=== PATIENT | female | born 1990 | race Caucasian/White ===

== ENCOUNTER 2025-01-19 10:02 | Emergency (ER) | payer OTHER, SELFPAY ==
[2025-01-19 10:14] VITALS: BP 123/86; PULSE 86; RESP 14; TEMP 36.1; O2SAT 96; BMI 32.4
--- NOTE | 2025-01-19 12:08 | ED.DENTAL ---
HPI - Dental/Oral <Olivia Storey PA-C - Last Filed: 01/19/25 19:16> General Chief complaint: Dental/Oral Stated complaint: Jaw pain Time Seen by Provider: 01/19/25 11:54 Mode of arrival: Ambulatory History of Present Illness HPI Narrative: Ms. Celis is a pleasant 34-year-old female, currently 17 weeks , following with Dale, who presents to the emergency department for right jaw pain since yesterday. Patient states her right lower jaw has been hurting and feels slightly swollen with pain radiating to the right ear. States that it hurts in the right TMJ to open her mouth. Reports that her right cheek feels slightly swollen. States that she does have a history of parotitis on the left side. She is fully vaccinated. Denies any focal tooth pain or maxillary sinus tenderness. Denies fevers, chills, difficulty swallowing, abdominal pain, vaginal bleeding, any other symptoms. She took Tylenol this morning which only helped with the pain slightly. Pain prevented her from sleeping last night. Related Data Previous Rx's Medication Instructions Recorded amoxicillin 875 mg tablet 875 mg PO BID 7 days #14 tabs 01/19/25 hydrocodone 5 mg-acetaminophen 325 1 tab PO Q6H PRN pain #1 tab 01/19/25 mg tablet Allergies Allergy/AdvReac Type Severity Reaction Status Date / Time ketorolac [From Toradol] Allergy Verified 01/19/25 10:14 meperidine [From Demerol] Allergy Verified 01/19/25 10:14 ciprofloxacin [From Cipro] AdvReac Verified 01/19/25 10:14 metoclopramide [From Reglan] AdvReac Verified 01/19/25 10:14 Review of Systems <Olivia Storey PA-C - Last Filed: 01/19/25 19:16> Review of Systems ROS Unobtainable: All systems reviewed & are unremarkable except as noted in HPI and below Patient History <Olivia Storey PA-C - Last Filed: 01/19/25 19:16> Social History Smoking Status: Unknown if ever smoked Smoking Status: Unknown if ever smoked Exam <Olivia Storey PA-C - Last Filed: 01/19/25 19:16> Narrative Exam Narrative: GENERAL: 34 year old patient appears stated age. Well-developed patient, in no acute distress. HEAD: Atraumatic. Normocephalic. EYES: No scleral icterus. No injection or drainage. ENT: Tenderness to palpation of right mandible and TMJ. Patient has pain with opening her mouth, oropharynx is widely patent, no focal tooth tenderness but she does have discomfort with palpation of right lower gingiva and parotid gland region. Normal TMs and ear canals bilaterally. NECK: Trachea midline. Cervical ROM intact. CARDIOVASCULAR: Regular rate and rhythm. RESPIRATORY: ?Nonlabored respirations. ?Speaking in clear, full sentences. ?Clear to auscultation. Initial Vital Signs Initial Vital Signs: Vital Signs Temperature 97.0 F L 01/19/25 10:14 Pulse Rate 86 01/19/25 10:14 Respiratory Rate 14 01/19/25 10:14 Blood Pressure 123/86 01/19/25 10:14 Pulse Oximetry 96 01/19/25 10:14 Oxygen Delivery Method Room Air 01/19/25 10:14 <Rajesh Mason MD - Last Filed: 01/21/25 12:41> Initial Vital Signs Initial Vital Signs: Vital Signs Temperature 97.0 F L 01/19/25 10:14 Pulse Rate 86 01/19/25 10:14 Respiratory Rate 14 01/19/25 10:14 Blood Pressure 123/86 01/19/25 10:14 Pulse Oximetry 96 01/19/25 10:14 Oxygen Delivery Method Room Air 01/19/25 10:14 Course <Olivia Storey PA-C - Last Filed: 01/19/25 19:16> Orders Ordered: Discontinued Medications Hydrocodone Bitart/Acetaminophen (Hydrocodone/Acet 5/325 Tablet) 1 tab PO NOW ONE Stop: 01/19/25 12:19 Last Admin: 01/19/25 12:40 Dose: 1 tab Documented By: ALEXA Ondansetron HCl (Ondansetron 4 Mg Odt) 4 mg SL NOW ONE Stop: 01/19/25 12:37 Last Admin: 01/19/25 12:40 Dose: 4 mg Documented By: RB Vital Signs Vital signs: Vital Signs - 8 hr 01/19/25 12:49 Temperature 97.9 F Pulse Rate 76 Respiratory Rate 18 Blood Pressure 132/63 Pulse Oximetry 99 Oxygen Delivery Method Room Air <Rajesh Mason MD - Last Filed: 01/21/25 12:41> Orders Ordered: Discontinued Medications Hydrocodone Bitart/Acetaminophen (Hydrocodone/Acet 5/325 Tablet) 1 tab PO NOW ONE Stop: 01/19/25 12:19 Last Admin: 01/19/25 12:40 Dose: 1 tab Documented By: ALEXA Ondansetron HCl (Ondansetron 4 Mg Odt) 4 mg SL NOW ONE Stop: 01/19/25 12:37 Last Admin: 01/19/25 12:40 Dose: 4 mg Documented By: RB Vital Signs Vital signs: Vital Signs - 8 hr 01/19/25 12:49 Temperature 97.9 F Pulse Rate 76 Respiratory Rate 18 Blood Pressure 132/63 Pulse Oximetry 99 Oxygen Delivery Method Room Air MDM - Dental/Oral <Olivia Storey PA-C - Last Filed: 01/19/25 19:16> MDM Narrative Medical decision making narrative: 34-year-old female, currently 17 weeks , following with Jose, who presents to the emergency department for right jaw pain since yesterday. Differential diagnosis includes but is not limited to dental infection, dental abscess, temporomandibular joint dysfunction, parotitis, parotid gland stone, etc. On exam the patient is in no acute distress, nontoxic appearing, she is visibly uncomfortable because of right jaw/facial cheek pain. Vital signs within normal limits. Physical exam reveals no obvious abscess or swelling, she does have some tenderness over the right cheek/parotid gland region, some chronically poor dentition. We will treat with amoxicillin to cover for possible dental infection contributing to discomfort, we will also treat severe pain with hydrocodone-acetaminophen as patient is currently and he is to avoid NSAIDs. Suspect symptoms are also likely related TMJ dysfunction however once again patient can not have NSAIDs at this time as she is currently . Recommended completion a full course of antibiotics, Tylenol for pain, warm compresses and sucking on sour candies to increase salivation. Advised to follow up with dentist, primary care doctor, discussed strict ED return precautions. Patient does request 1 additional dose of hydrocodone-acetaminophen to take before bed which I prescribed for her. Discussed risks of narcotics. Patient verbalized understanding of all information is agreeable to the plan, she is stable for discharge home. Discharge Plan Departure Patient Disposition: Home Clinical Impression: Jaw pain Instructions: DI for Parotitis-Adult Activity Restrictions/Additional Instructions: Thank you for coming to the emergency department. Today you were evaluated for right jaw pain. I am treating with a course of amoxicillin to cover for possible dental infection /parotid gland infection. Please use sour candies to help increase salivation, brush teeth twice a day, flus once daily, rinse mouth after eating, and follow up with your primary care doctor and your dentist. Please use cold compresses on the outside of the cheek to help with swelling. Please use Tylenol for pain. Please return to the emergency department if you develop any new or worsening symptoms, difficulty swallowing, or other concerns. Please follow up with your primary care doctor within the next 2-3 days for ER follow-up. (If you do not have a PCP you can call [phone]. ?to schedule an appointment with an [facility] Primary Care Provider) IF YOU DEVELOP ANY NEW OR WORSENING SYMPTOMS, RETURN TO THE ER! Please read the attached instructions, they highlight more specific treatments and interventions for you at home. Thank you for letting me participate in your care, Olivia Storey PA-C Prescriptions: New amoxicillin 875 mg tablet 875 mg PO BID 7 Days Qty: 14 0RF hydrocodone-acetaminophen 5-325 mg tablet 1 tab PO Q6H PRN (Reason: pain) Qty: 1 0RF Rx Instructions: Before bed if needed for severe pain. Stand Alone Forms: Patient Portal/API/Survey ED Sign-out <Rajesh Mason MD - Last Filed: 01/21/25 12:41> [facility]: I was immediately available in the department for consultation. ?This documentation has been reviewed and I agree with assessment and plan. Supervised by Rajesh Mason MD
[2025-01-19] MEDS: HYDROCODONE/ACET 5/325 TABLET 1 TAB PO (12:40)
[2025-01-19] MEDS: ONDANSETRON 4 MG ODT SL (12:40)
[2025-01-19 12:49] VITALS: BP 132/63; PULSE 76; RESP 18; TEMP 36.6; O2SAT 99
== END 2025-01-19 12:50 | disposition home or self-care (01) ==
PROVIDERS: Emergency Provider Physician Assistant
DX: O26.892 Other specified pregnancy related conditions, second trimester (principal); R68.84 Jaw pain; Z3A.17 17 weeks gestation of pregnancy
CPT/HCPCS: 99283